=== PATIENT | female | born 1980 | race American Indian/Alaskan Native ===

== ENCOUNTER 2022-05-10 11:42 | Emergency (ER) | payer SELFPAY ==
[2022-05-10 12:55] VITALS: BP 145/80
--- NOTE | 2022-05-10 12:57 | Emergency Department Report ---
Stated Complaint: CUT ON LEG - HPI History of Present Illness: 42 y F reports to Er with right ankle with laceration noted due to glass from solar lawn item. - ROS Review of Systems: lac to right ankle - Exam Vital Signs: Vital Signs 05/10/22 12:53 Temperature 98.4 F Pulse Rate 69 Respiratory 18 Rate Blood Pressure 145/80 [Left] O2 Sat by Pulse 99 Oximetry MSE screening note: Focused history and physical exam performed. Due to findings the following was ordered: medical screen completed , pending room assignment for further eval. NAD ED Disposition for MSE Condition: Stable
--- NOTE | 2022-05-10 13:23 | XRay Report ---
RIGHT ANKLE 2 VIEW(S) INDICATION / CLINICAL INFORMATION: lac to ankle COMPARISON: None available. FINDINGS: BONES / JOINT(S): No acute fracture or subluxation. No significant arthritis. SOFT TISSUES: No radiodense foreign bodies. There appears to be an accessory soleus muscle. There is mild anterior soft tissue swelling. ADDITIONAL FINDINGS: None. IMPRESSION: 1. No acute skeletal abnormality. Signer Name: Warren Marvin MD Signed: 05/10/2022 1:19 PM Workstation Name: [email or web address]
--- NOTE | 2022-05-10 16:11 | Emergency Department Report ---
ED Laceration HPI - HPI Chief Complaint: Laceration/Recheck/Suture Stated Complaint: CUT ON LEG Time Seen by Provider: 05/10/22 16:06 Occurred When: Today Location: Lower Extremity Severity: mild Tetanus Status: Unknown Laceration Symptoms: Yes Pain, No Foreign Body Sensation, No Numbness, No Weakness Other History: 42-year-old female presents with laceration to her right lower leg which she sustained this morning from a glass. Describes pain as sharp, throbbing, difficulty walking unable to ambulate or bear weight on her right leg. Denies use of blood thinners, denies any weakness numbness tingling, no headache dizziness or vision changes, ED Review of Systems ROS: Stated complaint: CUT ON LEG Other details as noted in HPI Constitutional: no symptoms reported ENT: as per HPI Respiratory: denies: cough Cardiovascular: denies: chest pain, palpitations, dyspnea on exertion, edema Endocrine: denies: intolerance to cold, intolerance to heat Gastrointestinal: denies: abdominal pain, nausea, vomiting Genitourinary: denies: urgency, dysuria Musculoskeletal: arthralgia. denies: back pain, joint swelling Skin: rash, lesions Neurological: denies: headache, weakness, numbness, paresthesias, confusion, abnormal gait Hematological/Lymphatic: denies: easy bleeding ED Past Medical Hx - Past Medical History Previous Medical History?: Yes Hx Diabetes: Yes Hx Asthma: Yes - Medications Home Medications: Home Medications Medication Instructions Recorded Confirmed Last Taken Type Ibuprofen [Motrin 800 MG tab] 800 mg PO Q8HR PRN #30 tablet 05/10/22 Unknown Rx Laceration Physical Exam - Exam General: Vital signs noted. N uncomfortable appearing female in no acute distress. Wound Length (cm): 5 (cm) Laceration Location: Lower Extremity Full Body Front + Back: 1 - Patient has a 4 cm linear laceration to the right lateral aspect of her distal fib area. Visible subcu tissue, bleeding resolved, no bony tissue, no obvious hematoma, no obvious foreign body. Pain with active ROM, cap refill se nsation intact. Laceration Exam: Yes Normal Distal CMS, No Foreign Body, No Exposed Tendon, Vessel, or Nerve, No Tendon Injury ED Course Vital Signs 05/10/22 12:53 Temperature 98.4 F Pulse Rate 69 Respiratory 18 Rate Blood Pressure 145/80 [Left] O2 Sat by Pulse 99 Oximetry - Laceration /Wound Repair Right Leg Wound Location: lower extremity Wound's Depth, Shape: linear Wound Explored: no foreign body removed Irrigated w/ Saline (ccs): 500 Betadine Prep?: Yes Anesthesia: 1% Lidocaine Volume Anesthetic (ccs): 5 Wound Debrided: minimal Wound Repaired With: sutures Suture Size/Type: 4:0 Number of Sutures: 7 Layer Closure?: No Sterile Dressing Applied?: Yes Progress: Verbal consent obtained for laceration repair from patient and spouse, patient understand the risk involved including nerve damage bleeding. Sutures placed successfully, patient tolerated procedure well, she is neurovascularly neuromuscularly intact. No foreign body . ED Medical Decision Making - Medical Decision Making 42-year-old female presenting with laceration to her right lower extremity which has been successfully repaired with stitches. Pain addressed with improvement, patient is neurovascularly intact, she is able to ambulate with minimal difficulty. Her x-rays are negative for any acute fractures dislocations or foreign body. Patient does not take any blood thinners, no history of bleeding disorder. Patient remained stable nontoxic-appearing, afebrile, ambulating steadily without assistance. Gone over ED findings with patient as well as plan for follow-up. Also discussed return precautions with patient, all questions and concerns addressed. Patient is stable to be discharged follow-up outpatient. Audio voice dictation device used, hence the chart might contain some dictation errors, mispronunciations, wrong spelling and wrong verbiage. Critical care attestation.: If time is entered above; I have spent that time in minutes in the direct care of this critically ill patient, excluding procedure time. ED Disposition Clinical Impression: Laceration of leg Disposition: HOME / SELF CARE / HOMELESS Is pt being admited?: No Does the pt Need Aspirin: No Condition: Stable Instructions: Sutured Wound Care Prescriptions: Ibuprofen [Motrin 800 MG tab] 800 mg PO Q8HR PRN #30 tablet PRN Reason: Pain , Severe (7-10) Forms: Work/School Release Form(ED)
[2022-05-10] MEDS ORDERED: HYDROcodone/ACETAMINOPHEN 5-325 MG TAB PO ONE (16:16)
[2022-05-10] MEDS ORDERED: LIDOCAINE (1%) 10 MG/1 ML VIAL 20 ML MDV INFILTRATI ONE (16:16)
[2022-05-10] MEDS ORDERED: IBUPROFEN 800 MG TAB PO ONE (16:16)
[2022-05-10] MEDS ORDERED: SODIUM CHLORIDE 0.9% IRR 500 ML BOTTLE IR ONE (17:12)
== END 2022-05-10 18:44 | disposition home or self-care (01) ==
LOC: ED 11:42
DX: S81.811A Laceration without foreign body, right lower leg, initial encounter (principal); E11.9 Type 2 diabetes mellitus without complications; J45.909 Unspecified asthma, uncomplicated; W26.8XXA Contact with other sharp object(s), not elsewhere classified, initial encounter; Y93.89 Activity, other specified; Y92.89 Other specified places as the place of occurrence of the external cause; Y99.8 Other external cause status
CPT/HCPCS: 99283